=== PATIENT | female | born 1995 | race Caucasian/White ===

== ENCOUNTER 2017-04-01 15:57 | Inpatient (IN) | payer MEDICAID ==
[2017-04-01] MEDS ORDERED: RINGERS SOLUTION,LACTATED 1,000 ML IV ONE (16:21)
[2017-04-01] MEDS ORDERED: RINGERS SOLUTION,LACTATED 1,000 ML IV PRN (16:21)
[2017-04-01] MEDS ORDERED: LIDOCAINE 1% INJ-PF (10 MG/ML) 30 ML SDV ONE (16:24)
[2017-04-01] MEDS ORDERED: MISOPROSTOL 0.2 MG TABLET ONE (16:24)
[2017-04-01] MEDS ORDERED: OXYTOCIN/NORMAL SALINE 20 UNIT/1,000 ML RTUINJ ONE (16:25)
[2017-04-01] MEDS ORDERED: EPHEDRINE SULFATE INJ 50 MG/1 ML AMPULE ONE (16:33)
[2017-04-01] MEDS ORDERED: FENTANYL/BUPIVACAINE/NS/PF 200 MCG/100 ML RTUINJ EPI ONE (16:34)
[2017-04-01] MEDS ORDERED: BUPIVACAINE HCL 0.25 % INJ/PF (2.5 MG/1 ML) 30 ML VIAL ONE (16:34)
[2017-04-01 16:36] LABS: APPEARANCE,URINE CLEAR; BILIRUBIN,URINE NEGATIVE (NEGATIVE); GLUCOSE, URINE NEGATIVE (NEGATIVE); KETONES,URINE NEGATIVE (NEGATIVE); LEUKOCYTE ESTERASE,URINE NEGATIVE (NEGATIVE); NITRITE,URINE NEGATIVE (NEGATIVE); PROTEIN,URINE NEGATIVE (NEGATIVE); URINE SPECIFIC GRAVITY 1.015; UROBILINOGEN,URINE NEGATIVE mg/dL (<2.0)
[2017-04-01 17:01] LABS: ABSOLUTE EOSINOPHILS # (AUTO) 0.1 10^3/uL (0.0-0.6); ABSOLUTE LYMPHOCYTES (AUTO) 1.7 10^3/uL (0.5-4.7); BASOPHILS % (AUTO) 0.3 % (0-2); EOSINOPHILS % (AUTO) 0.7 % (0-6); HEMATOCRIT 31.9 % (36.0-47.0); HEMOGLOBIN 10.4 g/dL (12.0-15.5); HGB HCT DIFFERENCE -0.7; LYMPHOCYTES % (AUTO) 14.3 % (13-45); MEAN CORPUSCULAR HEMOGLOBIN 25.8 pg (27.0-33.4); MEAN CORPUSCULAR HGB CONC 32.7 g/dL (32.0-36.0); MEAN CORPUSCULAR VOLUME 79 fl (80-97); MONOCYTES % (AUTO) 8.5 % (3-13); RED BLOOD COUNT 4.03 10^6/uL (3.72-5.28); RED CELL DISTRIBUTION WIDTH 14.1 % (11.5-14.0); SEGMENTED NEUTROPHILS % (AUTO) 76.2 % (42-78); WHITE BLOOD COUNT 11.8 10^3/uL (4.0-10.5)
[2017-04-01 17:08] LABS: URINE BARBITURATES SCREEN NEGATIVE; URINE METHADONE SCREEN NEGATIVE; URINE OPIATES LOW NEGATIVE; URINE PHENCYCLIDINE SCREEN NEGATIVE
[2017-04-01] MEDS ORDERED: LANSOPRAZOLE 30 MG TAB.RAP.DR PO ONE (17:22)
[2017-04-01] MEDS ORDERED: LANSOPRAZOLE 30 MG TAB.RAP.DR ONE (17:27)
[2017-04-01] MEDS ORDERED: DIBUCAINE 1% OINTMENT 28 GM TP PRN (19:35)
[2017-04-01] MEDS ORDERED: MEASLES,MUMPS&RUBELLA VACC/PF 0.5 ML VIAL SUBCUT PRN (19:35)
[2017-04-01] MEDS ORDERED: OXYTOCIN/NORMAL SALINE 20 UNIT/1,000 ML RTUINJ IV PRN (19:35)
[2017-04-01] MEDS ORDERED: BENZOCAINE/MENTHOL AEROSOL SPRAY 56 ML TOP PRN (19:35)
[2017-04-01] MEDS ORDERED: DIPH/PERTUSS(ACELL)/TETANUS VAC/PF 0.5 ML SYR (>=10YO) IM PRN (19:35)
[2017-04-01] MEDS ORDERED: ACETAMINOPHEN WITH CODEINE #3 TABLET PO PRN (19:35)
[2017-04-01] MEDS ORDERED: ZOLPIDEM TARTRATE 5 MG TABLET PO PRN (19:35)
--- NOTE | 2017-04-01 19:40 | Delivery Summary ---
Del Sum A-C Datetime Report Generated by CPN: 04/01/2017 19:39 DELIVERY PERSONNEL DELIVERY PERSONNEL: [phone] Delivery Doctor:: Crystal Lane CNM Nurse Collections Attorney Certified:: Crystal Lane CNM Labor and Delivery Nurse:: Leslee Johns RNsenior service aide Nurse:: CELINA Johnson Picking Tech/MAP DRAFTER: Inocente Huerta, CRUSHER SETTER MATERNAL INFORMATION Delivery Anesthesia: Epidural Medications After Delivery: Pitocin Bolus-Please Comment; Pitocin Drip 20 Units/1000ml NSS Meds After Delivery Comment: Pitocin 20 units in 1000 ml Estimated Blood Loss (ml): 200 Maternal Complications: None Provider Comments: of viable female over intact perineum. Head delivered, nuchal cord noted, delivered through cord, shoulders and body delivered without difficulty. clamped X2, cut free, by pts after 2 min delay. Infant with spontaneous cry and respirations, kept skin to skin. Spontaneous delivery of placenta, via kapoor mechanism, appears intact, 3 VC, vagina and perineum inspected, no lacerations, noted, mother and infant in stable condition, routine care. LABOR SUMMARY EDC: 04/09/2017 00:00 No. Babies in Womb: 1 Attempted: No Labor Anesthesia: Epidural LABOR INFORMATION Reason for Induction: Not Applicable Onset of Labor: 04/01/2017 13:00 Complete Dilatation: 04/01/2017 18:37 Oxytocin: N/A Group B Beta Strep: negative Antibiotics # of Doses: 0 Steroids Given: None Reason Steroids Not Administered: Not Applicable MEMBRANES Membranes Rupture Method: Artificial Rupture of Membranes: 04/01/2017 17:59 Length of Rupture (hr): 0.75 Amniotic Fluid Color: Clear Amniotic Fluid Amount: Small Amniotic Fluid Odor: Normal STAGES OF LABOR Stage 1 hr: 5 Stage 1 min: 37 Stage 2 hr: 0 Stage 2 min: 7 Stage 3 hr: 0 Stage 3 min: 5 Total Time in Labor hr: 5 Total Time in Labor min: 49 VAGINAL DELIVERY Episiotomy: None Laceration Extension: N/A Laceration Type: None Laceration Repair: Not Applicable Laceration Repair Note: n/a Sponge Count Correct: N/A Sharps Count Correct: N/A CSECTION DELIVERY Primary Indication: N/A Secondary Indication: N/A CSection Incidence: N/A Labor: N/A Elective: N/A CSection Incision: N/A BABY A INFORMATION Delivery Date/Time: 04/01/2017 18:44 Method of Delivery: Vaginal Born in Route : No : N/A Forceps: N/A Vacuum Extraction: N/A Shoulder Dystocia : No PRESENTATION/POSITION BABY A Presentation: Cephalic Cephalic Presentation: Vertex Vertex Position: Right Occipital Anterior Breech Presentation: N/A PLACENTA INFORMATION BABY A Placenta Delivery Time : 04/01/2017 18:49 Placenta Method of Delivery: Spontaneous Placenta Status: Delivered SCORES BABY A Heart Rate 1 min: >100 bpm Resp Effort 1 min: Good Cry Reflex Irritability 1 min: Cough or Sneeze or Pulls Away Muscle Tone 1 min: Active Motion Color 1 min: Blue/Pale Resuscitation Effort 1 min: Tactile Stimulation SCORE 1 MIN: 8 Heart Rate 5 min: >100 bpm Resp Effort 5 min: Good Cry Reflex Irritability 5 min: Cough or Sneeze or Pulls Away Muscle Tone 5 min: Active Motion Color 5 min: Body [place], Extremities Blue Resuscitation Effort 5 min: N/A SCORE 5 MIN: 9 Resuscitation Effort 10 min: N/A INFANT INFORMATION BABY A Gestational Age at Delivery: 38.6 Gestational Status: Early Term- 37- 38.6 Weeks Infant Outcome : Liveborn Infant Condition : Stable Infant Sex: Female IDENTIFICATION BABY A Infant Verification Date/Time: 04/01/2017 18:58 ID Band Number: [id number] Mother's Name Verified: Yes RN Verifying Infant: C. Noemiil Additional Verifying Personnel: Rick Hilton RN WEIGHT/LENGTH BABY A Birthweight (gm): 3140 Infant Weight (lb): 6 Weight (oz): 15 Length (in): 20.00 Length (cm): 50.80 CORD INFORMATION BABY A No. Cord Vessels: 3 Nuchal Cord : triple nuchal x3 Nuchal Cord- Other: 3x Cord Blood Taken: Yes-For Eval (Mom's Blood Type - or O+) Infant Suction: None ASSESSMENT BABY A Skin to Skin: Yes Skin to Skin Time (min): 20 BABY B INFORMATION : N/A SIGNATURES Assignment: Ish Frank DO Signature: with User ID: [email or web address] : with User ID: [email or web address]
--- NOTE | 2017-04-01 20:58 | Admission Physical ---
Datetime Report Generated by CPN: 04/01/2017 20:58 CURRENT ADMISSION Hx Assessment: The History has been Reviewed and is Current Chief Complaint: Uterine Contractions Indication for Induction: Not Applicable Admit Plan: Admit to Unit; Initiate Labor Protocol ALLERGIES Medication Allergies: No Medication Allergies: latex/VA (04/01/2017) Medication Allergies: latex/VA (04/29/2016) Latex: Latex Allergies OBSTETRICAL HISTORY EDC: 04/09/2017 00:00 : 5 Para: 2 Term: 2 : 0 Ectopic: 0 Livin Cesareans: 0 VBACs: 0 Multiple Births: 0 Gestational Diabetes: No Rh Sensitization: No Incompetent Cervix: No ALFREDITO: No ART Treatment: No Uterine Anomaly: No IUGR: No Hx Previous C/S: No Macrosomia: No Hx Loss/Stillborn: No PIH: No Hx : No Placenta Previa/Abruption: No Depression/PP Depression: No PTL/PROM: No Post Hemorrhage: No Current Procedures: Ultrasound Obstetrical History Comments: G1- term female G2-sab g2- sab g4- term female g5- close interval between pregnancies SEE RECORDS Alcohol: Yes Alcohol Frequency: Occasional Alcohol Comments: wine earlier in Marijuana : No Cocaine: No Other Illicit Drugs: No Cigarettes: Current Everyday Smoker. [id number] Cigarette Frequency: 5 - 10 per day MEDICAL HISTORY Diabetes: No Blood Transfusion: No Pulmonary Disease (Asthma, TB): No Breast Disease: No Hypertension: No Side Laster Surgery: No Autoimmune Disorder: No Anesthetic Complications: No Kidney Disease: No Abnormal Pap Smear: No Neuro/Epilepsy: No Psychiatric Disorders: No Other Medical Diseases: No Hepatitis/Liver Disease: No Significant Family History: No Varicosities/Phlebitis: No Trauma/Violence : No Thyroid Dysfunction: No INFECTIOUS HISTORY Gonorrhea: No Genital Herpes: No Chlamydia: No Tuberculosis: No Syphilis: No Hepatitis: No HIV/AIDS Exposure: No Rash or Viral Illness: No HPV: Yes Infectious History Comments: 08/27/16 ascus pap with positive hpv PHYSICAL EXAM General: Normal HEENT: Normal Neurologic: Normal Thyroid: Deferred Heart: Normal Lungs: Normal Breast: Normal Back: Normal Abdomen: Normal Genitourinary Exam: Normal Extremities: Normal DTRs: Normal Pelvic Type: Adequate Physical Exam Comments: pelvis proven to 7 lbs 8 oz Vital Signs: Reviewed VAGINAL EXAM Dilatation: 7 Effacement: 90 Station: 0 Contraction Comments: 2-4 MEMBRANES Membranes: Intact FETUS A EGA: 38.6 Monitoring: External US FHR- Baseline: 150 Variability: Moderate 6-25bpm Decelerations: None FHR Category: Category I Estimated Weight (gm): 3500 Presentation: Vertex Admit Comment: Active labor, denies lof, states active baby, denies bleeding, ctx every 2-3 min. Close interval , last baby in 04/2016. GBS negative. May have epidural. Admit-standard orders. ASCUS pap, hpv +. Smoker. PLANS FOR LABOR AND DELIVERY Labor and Delivery: None Pain Management: Epidural Feeding Preference: Breast Benefit of Breast Feed Discussed: Yes Circumcision: N/A INFORMED CONSENT Assignment: Ish Frank DO Signature: with User ID: Ignacia : with User ID: [email or web address]
[2017-04-01] MEDS: IBUPROFEN 800 MG TABLET PO SCH (21:25)
[2017-04-02] MEDS: IBUPROFEN 800 MG TABLET PO SCH ×3 (06:01→21:06)
[2017-04-02 07:10] LABS: HEMATOCRIT 28.1 % (36.0-47.0); HEMOGLOBIN 9.7 g/dL (12.0-15.5); MEAN CORPUSCULAR HEMOGLOBIN 26.7 pg (27.0-33.4); MEAN CORPUSCULAR HGB CONC 34.4 g/dL (32.0-36.0); MEAN CORPUSCULAR VOLUME 78 fl (80-97); RED BLOOD COUNT 3.61 10^6/uL (3.72-5.28); RED CELL DISTRIBUTION WIDTH 14.3 % (11.5-14.0); WHITE BLOOD COUNT 14.2 10^3/uL (4.0-10.5)
[2017-04-02] MEDS: FERROUS SULFATE 325 MG TABLET PO SCH ×2 (09:53→17:41)
[2017-04-02] MEDS: DOCUSATE SODIUM 100 MG CAPSULE PO SCH ×2 (09:53→17:42)
[2017-04-02] MEDS: SENNOSIDES/DOCUSATE 8.6-50 MG 1 EACH TABLET PO SCH (09:53)
[2017-04-02] MEDS: PRENATAL VITAMIN W-O CA NO5/FE FUMARATE/FA CAPSULE PO SCH (09:53)
[2017-04-02] MEDS: ACETAMINOPHEN WITH CODEINE #3 TABLET PO PRN ×2 (09:57→17:47)
--- NOTE | 2017-04-02 12:55 | PDOC PROGRESS REPORT ---
Subjective-OB Subjective: Post Delivery Day:1 21 year old G5 now P3 s/p ppd1. Ambulating and voiding without difficulty. Denies any needs at this time Physical Exam (OB) Vital Signs: Temp Pulse Resp BP Pulse Ox 97.6 F 69 16 106/55 L 99 04/02/17 08:24 04/02/17 08:24 04/02/17 08:24 04/02/17 08:24 04/02/17 08:24 Intake & Output 04/01/17 04/02/17 04/03/17 06:59 06:59 06:59 Weight 78.3 kg - General General Appearance: Appears well In distress: None - Episiotomy/Laceration Site Condition: N/A - Lochia Lochia Amount: Small 10-25 ml Lochia Color: Rubra/Red - Abdomen Description: Soft, Round Hernia Present: No Fundal Description: Firm, Midline Fundal Height: u/u - u/2 - Respiratory Respiratory Status: No respiratory distress - Abdominal Inspection: Normal - Extremities Upper extremity: Normal inspection Lower extremities: Normal inspection - Neurological Cognition: Normal Orientation: AAOx4 - Psychological Associated symptoms: Normal affect, Normal mood Objective-Diagnostic Laboratory: 04/02/17 06:53 04/01/17 04/01/17 04/01/17 16:03 16:16 16:16 WBC 11.8 H RBC 4.03 Hgb 10.4 L Hct 31.9 L MCV 79 L MCH 25.8 L MCHC 32.7 RDW 14.1 H Plt Count 276 Seg Neutrophils % 76.2 Lymphocytes % 14.3 Monocytes % 8.5 Eosinophils % 0.7 Basophils % 0.3 Absolute Neutrophils 9.0 H Absolute Lymphocytes 1.7 Absolute Monocytes 1.0 Absolute Eosinophils 0.1 Absolute Basophils 0.0 Urine Color YELLOW Urine Appearance CLEAR Urine pH 9.0 Ur Specific [place] 1.015 Urine Protein NEGATIVE Urine Glucose (UA) NEGATIVE Urine Ketones NEGATIVE Urine Blood NEGATIVE Urine Nitrite NEGATIVE Ur Leukocyte Esterase NEGATIVE Blood Type O POSITIVE Antibody Screen NEGATIVE 04/02/17 06:53 WBC 14.2 H RBC 3.61 L Hgb 9.7 L Hct 28.1 L MCV 78 L MCH 26.7 L MCHC 34.4 RDW 14.3 H Plt Count 246 Seg Neutrophils % Lymphocytes % Monocytes % Eosinophils % Basophils % Absolute Neutrophils Absolute Lymphocytes Absolute Monocytes Absolute Eosinophils Absolute Basophils Urine Color Urine Appearance Urine pH Ur Specific [place] Urine Protein Urine Glucose (UA) Urine Ketones Urine Blood Urine Nitrite Ur Leukocyte Esterase Blood Type Antibody Screen Assessment and Plan(PN) - Assessment and Plan (1) Anemia affecting Qualifiers: Trimester: unspecified trimester Qualified Code(s): O99.019 - Anemia complicating , unspecified trimester Is this a current diagnosis for this admission?: Yes Plan: increase iron supplementation with diet and po FeSO4 (2) Term delivered Is this a current diagnosis for this admission?: Yes Plan: routine pp care (3) Insufficient antepartum care Is this a current diagnosis for this admission?: Yes Plan: delivered. Also short intervals. assistant media planner placed on admission. (4) Vaginal delivery Is this a current diagnosis for this admission?: Yes Plan: routine pp care (5) Smoking (tobacco) complicating , unspecified trimester Is this a current diagnosis for this admission?: Yes Plan: smoking cessation encouraged - Time Spent with Patient Time with patient: 15-25 minutes Smoking Education Provided: Over 3 minutes Medications reviewed and adjusted accordingly: Yes - Disposition Anticipated Discharge: Home Within: within 24 hours
[2017-04-03] MEDS: IBUPROFEN 800 MG TABLET PO SCH (05:13)
[2017-04-03] MEDS: ACETAMINOPHEN WITH CODEINE #3 TABLET PO PRN (05:15)
[2017-04-03 08:34] VITALS: BP 110/71
[2017-04-03] MEDS: DOCUSATE SODIUM 100 MG CAPSULE PO SCH (10:19)
[2017-04-03] MEDS: SENNOSIDES/DOCUSATE 8.6-50 MG 1 EACH TABLET PO SCH (10:19)
[2017-04-03] MEDS: FERROUS SULFATE 325 MG TABLET PO SCH (10:19)
[2017-04-03] MEDS: PRENATAL VITAMIN W-O CA NO5/FE FUMARATE/FA CAPSULE PO SCH (10:19)
--- NOTE | 2017-04-03 10:53 | PDOC PROGRESS REPORT ---
Subjective-OB Subjective: Post Delivery Day: 21 year old. Denies any needs at this time Doing well, ready to go home, passing gas, ambulating, coughing up thick mucus, pain under control, scant bleeding, breast feeding, feeding baby Physical Exam (OB) Vital Signs: Temp Pulse Resp BP Pulse Ox 97.7 F 79 16 110/71 98 04/03/17 08:00 04/03/17 08:00 04/03/17 08:00 04/03/17 08:00 04/03/17 08:00 Intake & Output 04/02/17 04/03/17 04/04/17 06:59 06:59 06:59 Intake Total 240 Balance 240 Weight 78.3 kg - Lochia Lochia Amount: Scant < 10 ml Lochia Color: Rubra/Red - Abdomen Description: Soft Hernia Present: No Fundal Description: Firm, Midline Fundal Height: u/u - u/2 Objective-Diagnostic Laboratory: 04/02/17 06:53 Assessment and Plan(PN) - Assessment and Plan (1) Anemia affecting Qualifiers: Trimester: unspecified trimester Qualified Code(s): O99.019 - Anemia complicating , unspecified trimester Is this a current diagnosis for this admission?: Yes (2) Smoking (tobacco) complicating , unspecified trimester Is this a current diagnosis for this admission?: Yes (4) Insufficient antepartum care Is this a current diagnosis for this admission?: Yes (5) Vaginal delivery Is this a current diagnosis for this admission?: Yes - Time Spent with Patient Time with patient: Less than 15 minutes Smoking Education Provided: Over 3 minutes Medications reviewed and adjusted accordingly: Yes - Disposition Anticipated Discharge: Home Within: Other - home today
--- NOTE | 2017-04-03 10:58 | PDOC DISCHARGE SUMMARY ---
Final Diagnosis Discharge Date: 04/03/17 - Final Diagnosis (1) Anemia affecting Is this a current diagnosis for this admission?: Yes (2) Smoking (tobacco) complicating , unspecified trimester Is this a current diagnosis for this admission?: Yes (3) Acute blood loss anemia Is this a current diagnosis for this admission?: Yes (4) Insufficient antepartum care Is this a current diagnosis for this admission?: Yes (5) Vaginal delivery Is this a current diagnosis for this admission?: Yes Discharge Data - Discharge Medication Home Medications: Ferrous Sulfate [Feosol 325 mg Tablet] 325 mg PO BID #60 tablet 04/03/17 Ibuprofen [Motrin 800 mg Tablet] 800 mg PO Q8 #60 tablet 04/03/17 Pnv W-O Ca No5/Fe Fumarate/FA [-U Multiple Vitamin Capsule] 1 cap PO DAILY capsule 04/03/17 Gestational Age: 38.6 Reason(s) for Admission: Onset of Labor Procedures: NST, Ultrasound Intrapartum Procedure(s): Spontaneous Vaginal Delivery - [place] Data Baby 1 Female at 1 minute: 8 at 5 minutes: 9 Weight: 3.147 kg Home with Mother: Yes Complications: No - Diagnosis Test Laboratory: Temp Pulse Resp BP Pulse Ox 97.7 F 79 16 110/71 98 04/03/17 08:00 04/03/17 08:00 04/03/17 08:00 04/03/17 08:00 04/03/17 08:00 04/01/17 04/01/17 04/02/17 16:03 16:16 06:53 RBC 4.03 3.61 L Hgb 10.4 L 9.7 L Hct 31.9 L 28.1 L Urine Opiates Screen NEGATIVE - Discharge information/Instructions Discharge Activity: Activity As Tolerated, No Lifting Over 10 Pounds, No Lifting /Push/Pulling, Pelvic Rest Discharge Diet: As Tolerated, Regular Disposition: HOME, SELF-CARE Follow up with: [facility] in: 4, Weeks - stop smoking
== END 2017-04-03 12:45 | disposition home or self-care (01) | DRG 774 ==
LOC: LC 15:57 → LR 16:22 → 2S 20:55
PROVIDERS: ADMIT Obstetrics & Gynecology; ATTEND Obstetrics & Gynecology
PROC: 10E0XZZ Delivery of Products of Conception, External Approach (ICD-10-PCS; principal; 2017-04-01)
PROC: 4A1HXCZ Monitoring of Products of Conception, Cardiac Rate, External Approach (ICD-10-PCS; 2017-04-01)
PROC: 10907ZC Drainage of Amniotic Fluid, Therapeutic from Products of Conception, Via Natural or Artificial Opening (ICD-10-PCS; 2017-04-01)
DX: O99.334 Smoking (tobacco) complicating childbirth (principal); O98.32 Other infections with a predominantly sexual mode of transmission complicating childbirth; F17.210 Nicotine dependence, cigarettes, uncomplicated; O99.314 Alcohol use complicating childbirth; D64.9 Anemia, unspecified; O69.81X0 Labor and delivery complicated by cord around neck, without compression, not applicable or unspecified; O99.02 Anemia complicating childbirth; Z3A.38 38 weeks gestation of pregnancy; Z37.0 Single live birth
CPT/HCPCS: 36415; 80307; 81005; 85025; 85027; 86592; 86850; 86900; 86901; J2590; J3490